=== PATIENT | female | born 1965 | race Caucasian/White ===

== ENCOUNTER 2018-11-28 20:26 | Emergency (ER) | payer OTHER ==
[~2018-11-28] VITALS: Ht 172.7 cm; Wt 105.2 kg
[2018-11-28 20:45] VITALS: BP 160/89; Ht 172.7 cm; Wt 105.2 kg
== END 2018-11-28 23:59 | disposition home or self-care (01) ==
LOC: ED 20:26
DX: S05.01XA Injury of conjunctiva and corneal abrasion without foreign body, right eye, initial encounter (principal); H11.31 Conjunctival hemorrhage, right eye; R51 Headache; R10.30 Lower abdominal pain, unspecified; E03.9 Hypothyroidism, unspecified; Z98.890 Other specified postprocedural states; X58.XXXA Exposure to other specified factors, initial encounter; Y93.89 Activity, other specified; Y92.89 Other specified places as the place of occurrence of the external cause; Y99.8 Other external cause status

== ENCOUNTER 2019-01-25 17:02 | Emergency (ER) | payer OTHER ==
[~2019-01-25] VITALS: Ht 170.2 cm; Wt 107.5 kg
[2019-01-25 17:05] VITALS: Ht 170.2 cm; Wt 107.5 kg
[2019-01-25 17:50] VITALS: BP 108/69
== END 2019-01-25 17:50 | disposition home or self-care (01) ==
LOC: ED 17:02
DX: R30.0 Dysuria (principal); R50.9 Fever, unspecified; M54.5 Low back pain; E03.9 Hypothyroidism, unspecified; R30.9 Painful micturition, unspecified; Z98.890 Other specified postprocedural states

== ENCOUNTER 2019-03-10 11:52 | Emergency (ER) | payer OTHER ==
[~2019-03-10] VITALS: Ht 175.3 cm; Wt 106.6 kg
[2019-03-10 11:55] VITALS: Ht 175.3 cm; Wt 106.6 kg
[2019-03-10 12:47] VITALS: BP 110/69
== END 2019-03-10 12:47 | disposition home or self-care (01) ==
LOC: ED 11:52
DX: N34.1 Nonspecific urethritis (principal); E03.9 Hypothyroidism, unspecified; Z98.890 Other specified postprocedural states